=== PATIENT | male | born 1940 | race Caucasian/White ===

== ENCOUNTER 2019-06-21 09:56 | Emergency (ER) | payer MEDICARE ==
[2019-06-21] MEDS ORDERED: Cyclobenzaprine TAB* 10 MG PO ONE (10:32)
--- NOTE | 2019-06-21 10:35 | ED ---
Back Pain - HPI Summary HPI Summary: 78 year old M presents to [facility] accompanied by with a chief complaint of back pain since 3 days ago, 06/18/19, worse since last night, 06/20/19. Symptoms aggravated by nothing. Symptoms alleviated by nothing. Patient reports minor spasm earlier in week while he was doing nothing unusual at work (goes once a week as he is in [employer]) and for which he took ibuprofen which alleviated the pain. Patient reports the pain was bothering him but it was nothing serious until last night when the pain worsened to what he described as a knife in the middle of his back. Patient reports similar pain yrs ago after picking up 80 pounds of sarina stuff and throwing it on the roof. Patient also reports past back surgery for sciatica here at [facility]. Patient denies fever and chills but reports slight nausea from pain. Denies hx diabetes, IV drug use , issues of peeing/pooping/pooping on self, cigarette use, dysuria, numbness between penis and butt, and weakness in legs. Patient reports hes scared to stand up as the pain telegraphs all over. Patient reports he has high BP ( takes medication for 40 yrs) and takes minor heart drug for minor afib. Pt denies use of blood thinner and current use of Cialis. Takes testosterone for bone and muscle issues. Hx kidney stones. - History of Current Complaint Chief Complaint: EDBackInjuryPain Stated Complaint: BACK PAIN Time Seen by Provider: 06/21/19 10:02 Hx Obtained From: Patient Onset/Duration: Lasting Days - 3, Still Present Onset/Duration: Started Days Ago - 3, Still Present Pain Intensity: 5 Pain Scale Used: 0-10 Numeric Character: Spasmodic Aggravating Symptom(s): Nothing Alleviating Symptom(s): OTC Meds Associated Signs And Symptoms: Positive: Other - denies chills, dysuria, weakness in legs; reports nausea. Negative: Fever, Numbness, Bladder Incontinence, Bowel Incontinence - Allergies/Home Medications Allergies/Adverse Reactions: Allergies Allergy/AdvReac Type Severity Reaction Status Date / Time codeine Allergy Altered Verified 06/21/19 10:00 Mental Status ANTIBACTERIAL SOAP Allergy Rash Uncoded 01/11/17 10:45 PMH/Surg Hx/FS Hx/Imm Hx Endocrine/Hematology History: Denies: Hx Diabetes Cardiovascular History: Reports: Hx Hypertension - CONTROLLED WITH MEDICATION Denies: Hx Pacemaker/ICD GI History: Reports: Hx Hiatal Hernia - STATES RELATED TO BLOOD PRESSURE MED IN History: Reports: Hx Kidney Stones - HX OF 4-5 YEARS AGO Musculoskeletal History: Reports: Hx Arthritis - "ALL OVER" Denies: Hx Rheumatoid Arthritis, Hx Osteoporosis Sensory History: Reports: Hx Cataracts - BILATERAL, Hx Contacts or Glasses - GLASSES Denies: Hx Hearing Aid Opthamlomology History: Reports: Hx Cataracts - BILATERAL, Hx Contacts or Glasses - GLASSES Neurological History: Reports: Hx Migraine - HISTORY OF - NO PROBLEMS SINCE 1987 Psychiatric History: Denies: Hx Panic Disorder - Surgical History Surgery Procedure, Year, and Place: RIGHT HIP REPLACEMENT 2013. LSP DISCECTOMY 1998. MOLE REMOVAL ON FACE YRS AGO. RIGHT KNEE REPLACEMENT Hx Anesthesia Reactions: No Infectious Disease History: No Infectious Disease History: Denies: Traveled Outside the [place] in Last 30 Days - Family History Known Family History: Positive: Hypertension - Social History Alcohol Use: Occasionally Alcohol Amount: 1 PER DAY Hx Substance Use: No Substance Use Type: Reports: None Hx Tobacco Use: No Smoking Status (MU): Never Smoked Tobacco Review of Systems Negative: Fever, Chills Positive: Nausea Negative: dysuria, incontinence Musculoskeletal: Other - denies weakness in legs and numbness Positive: Other - back pain All Other Systems Reviewed And Are Negative: Yes Physical Exam - Summary Physical Exam Summary: Constitutional: Well-developed, Well-nourished, Alert. (-) Distressed Skin: Warm, Dry HENT: Normocephalic; Atraumatic Eyes: Conjunctiva normal Neck: Musculoskeletal ROM normal neck. (-) JVD, (-) Stridor, (-) Tracheal deviation Cardio: Rhythm regular, rate normal, Heart sounds normal; Intact distal pulses; The pedal pulses are 2+ and symmetric. Radial pulses are 2+ and symmetric. (-) Murmur Pulmonary/Chest wall: Effort normal. (-) Respiratory distress, (-) Wheezes, (-) Rales Abd: Soft, (-) tenderness, (-) Distension, (-) Guarding, (-) Rebound, bedside ultrasound normal diameter abdominal aorta Musculoskeletal: no midline back tenderness, limited range of motion, rotation flexion and extension, Able to ambulate on both heels and toes Lymph: (-) Cervical adenopathy Neuro: Alert, Oriented x3 Psych: Mood and affect Normal Triage Information Reviewed: Yes Vital Signs On Initial Exam: Initial Vitals Temp Pulse Resp BP Pulse Ox 97.9 F 72 16 158/100 98 06/21/19 09:57 06/21/19 09:57 06/21/19 09:57 06/21/19 09:57 06/21/19 09:57 Vital Signs Reviewed: Yes Diagnostics - Vital Signs Vital Signs Temp Pulse Resp BP Pulse Ox 06/21/19 09:57 97.9 F 72 16 158/100 98 - Laboratory Lab Statement: Any lab studies that have been ordered have been reviewed, and results considered in the medical decision making process. - Radiology Lumbar Spine X-Ray Radiology Interpretation Completed By: Radiologist Summary of Radiographic Findings: Per radiologist,. Negative for lumbar sacral spine fracture. ED physician has reviewed this imaging report. Back Pain Course/Dx - Course Course Of Treatment: Patient is here with lower back pain. Patient has no red flag symptoms of back pain outside of his age. Patient had a negative lumbar x- ray for compression fracture. Patient had no neurologic deficits. Patient had a bedside ultrasound showed a normal caliber abdominal aorta. Patient had no blood or evidence of infection his urine. Patient was given Flexeril here. Patient is discharged with Flexeril and lidocaine patches. - Diagnoses Provider Diagnoses: Lower back pain Discharge ED - Sign-Out/Discharge Documenting (check all that apply): Patient Departure - discharge Patient Received Moderate/Deep Sedation with Procedure: No - Discharge Plan Condition: Stable Disposition: HOME Prescriptions: Cyclobenzaprine TAB* [Flexeril 10 MG TAB*] 10 mg PO BID PRN #12 tab PRN Reason: muscle cramp Lidocaine PATCH 5%* [Lidoderm 5% Patch*] 1 patch TRANSDERM DAILY 7 Days #7 patch Patient Education Materials: Low Back Strain (ED) Referrals: Deanna Doan MD [Primary Care Provider] - As Soon As Possible Additional Instructions: Come back to ED for any difficultly using the bathroom, blood in urine, and abdominal pain. Take medications as prescribed. - Billing Disposition and Condition Condition: STABLE Disposition: Home - Attestation Statements Document Initiated by Scribe: Yes Documenting Scribe: Alexa Mcgregor Provider For Whom Scribe is Documenting (Include Credential): Dr. Elkin Coronado MD Scribe Attestation: I, Alexa Mcgregor, scribed for Dr. Elkin Coronado MD on 06/21/19 at 1253. Scribe Documentation Reviewed: Yes Provider Attestation: The documentation as recorded by the scribeAlexa accurately reflects the service I personally performed and the decisions made by me, Dr. Elkin Coronado MD Status of Scribe Document: Viewed
[2019-06-21 11:52] LABS: Urine Appearance Clear; Urine Bilirubin Negative (Negative); Urine Blood Negative (Negative); Urine Color Yellow; Urine Glucose Negative (Negative); Urine Ketones Negative (Negative); Urine Nitrite Negative (Negative); Urine Protein Negative (Negative); Urine Urobilinogen Negative (Negative)
[2019-06-21 12:41] VITALS: BP 170/85
== END 2019-06-21 12:35 | disposition home or self-care (01) ==
LOC: ED 09:56
DX: M54.5 Low back pain (principal); R11.0 Nausea; R53.1 Weakness; Z87.442 Personal history of urinary calculi; I10 Essential (primary) hypertension; K44.9 Diaphragmatic hernia without obstruction or gangrene
CPT/HCPCS: 72110; 81003; 99282; A9270-GY